=== PATIENT | female | born 1985 | race African-American/Black ===

== ENCOUNTER 2017-07-02 05:20 | Emergency (ER) | payer OTHER ==
[~2017-07-02] VITALS: Ht 157.5 cm; Wt 104.0 kg
[~2017-07-02 05:20] MED LIST: CIPR500T4 PO; HYDR-3533 PO; LACT20SO4 PO; LORTA5 PO; METR-1 PO; OXYC-360 PO; SULF-154 PO; Z.0.NO CURRENT MEDS
[2017-07-02 05:21] VITALS: BP 131/73; PULSE 78; RESP 16; TEMP 98.8; O2SAT 99
[2017-07-02] MEDS ORDERED: AMOX875T PO (05:43)
--- NOTE | 2017-07-02 05:45 | PD ---
HPI Chief Complaint: ENT Complaint Time Seen by Provider: 05:42 Travel History International Travel<30 days: No Contact w/Intl Traveler<30days: No Traveled to known affect area: No History of Present Illness HPI 32-year-old female here with right ear pain and sore throat. She felt right ear pain several days ago. Over the past few days she has developed sore throat. Pain is throbbing, constant, worse when swallowing. Denies fevers, chills, rash, recent travel, sick contacts, cough. No other complaints. PFSH Past Medical History Diminished Hearing: No Musculoskeletal: Yes (CYST ON SPINE PER PT) Integumentary: Yes (PRIOR I&D ABSCESS COCCYX) Immunizations Current: Yes Influenza Vaccination: No ?: Not LMP: 06/22/17 : 2 Para: 0 Miscarriage: 1 : 1 Past Surgical History Other Surgery: Yes (7 I&D OF PILONIDAL CYST) Social History Alcohol Use: No Tobacco Use: Yes (07/10 PPD) Substance Use: No Allergies-Medications (Allergen,Severity, Reaction): Coded Allergies: pineapple (Unverified Allergy, Severe, TONGUE SWELLING, 07/02/17) Reported Meds & Prescriptions Reported Meds & Active Scripts Active Amoxicillin 875 Mg Tab 875 Mg PO BID 10 Days Review of Systems Except as stated in HPI: all other systems reviewed are Neg Physical Exam Narrative GENERAL: Well-nourished female in no acute distress SKIN: Warm and dry. HEAD: Atraumatic. Normocephalic. EYES: Pupils equal and round. No scleral icterus. No injection or drainage. ENT: No nasal bleeding or discharge. Mucous membranes pink and moist. Oral pharyngeal erythema and exudate formation. NECK: Trachea midline. No JVD. Tender anterior cervical lymphadenopathy. CARDIOVASCULAR: Regular rate and rhythm. No murmur appreciated. RESPIRATORY: No accessory muscle use. Clear to auscultation. Breath sounds equal bilaterally. Data Data Last Documented VS Vital Signs Date Time Temp Pulse Resp B/P (MAP) Pulse Ox O2 Delivery O2 Flow Rate FiO2 07/02/17 05:21 98.8 78 16 131/73 (92) 99 Room Air Orders Orders Ed Discharge Order (07/02/17 05:43) MDM Medical Decision Making Medical Screen Exam Complete: Yes Emergency Medical Condition: Yes Medical Record Reviewed: Yes Differential Diagnosis Exudative pharyngitis, tonsillitis, peritonsillar abscess, otitis media, ruptured tympanic membrane Narrative Course The patient has exudative pharyngitis will be treated with amoxicillin. Diagnosis Primary Impression: Exudative pharyngitis Departure Forms: Tests/Procedures, Work Release Enter return to work date: Jul 03, 2017 Additional Instructions: Medication as prescribed. Stay well hydrated. Tylenol or Motrin for pain. Follow-up with primary care physician as needed and return for any emergent medical conditions. Med/Other Pt SpecificInfo: Prescription(s) given Scripts Amoxicillin (Amoxicillin) 875 Mg Tab 875 MG PO BID for Infection for 10 Days, #20 TAB 0 Refills Prov: Saulo Sommers MD 07/02/17 Disposition: 01 DISCHARGE HOME Condition: Stable Jordy Mcmillan Jul 02, 2017 05:45
== END 2017-07-02 06:04 | disposition home or self-care (01) ==
LOC: NEPD 05:20
DX: J02.9 Acute pharyngitis, unspecified (principal); F17.200 Nicotine dependence, unspecified, uncomplicated
CPT/HCPCS: 99283